=== PATIENT | female | born 1975 | race Caucasian/White ===

== ENCOUNTER 2017-06-14 21:53 | Emergency (ER) | payer SELFPAY ==
[~2017-06-14] VITALS: Ht 167.6 cm; Wt 68.0 kg
[2017-06-14 22:03] VITALS: BP 136/80
--- NOTE | 2017-06-14 22:15 | NUR ---
TO ER BED 5
--- NOTE | 2017-06-14 22:20 | NUR ---
41 Y/O F BIB [facility]USB[facility] W/C/O PAIN TO R SMALL TOE S/P TRIPPING WITH A CHAIR WHILE WALKING. TOE APPERS SWOLLEN AND SLIGHLTY DEVIATED TO THE RIGHT. NO S/S OF IMPAIRED CURCULATION, POSITIVE SENSATION, WARM TO TOUCH, PINK, CAP LESS THAN 3. ER MD MADE AWARE.
--- NOTE | 2017-06-14 22:20 | NUR ---
Patient being evaluated by physician at bedside.
[2017-06-14] MEDS ORDERED: LIDOCAINE 2% 1000 MG/50 ML VIAL INJ ONE (23:20)
[2017-06-14] MEDS ORDERED: oxyCODONE/APAP 5/325 MG 1 TAB TAB PO ONE (23:20)
--- NOTE | 2017-06-15 01:24 | NUR ---
XRAY IN BED SIDE TO CONFIRM REDUCTION OF AFFECTED TOE.
[2017-06-15 02:00] VITALS: BP 118/76
--- NOTE | 2017-06-15 02:00 | NUR ---
Patient discharged with v/s stable. Written and verbal after care instructions given and explained. Patient alert, oriented and verbalized understanding of instructions. Ambulatory with steady gait. All questions addressed prior to discharge. ID band removed. Patient advised to follow up with PMD IN 1-2 DAYS FOR F/U OR RETURN TO ER IF CONDITION WORSENS. Rx of given. Patient educated on indication of medication including possible reaction and side effects. Opportunity to ask questions provided and answered.
== END 2017-06-15 02:00 | disposition home or self-care (01) ==
LOC: MED 21:53
DX: S92.511A Displaced fracture of proximal phalanx of right lesser toe(s), initial encounter for closed fracture (principal); Z71.6 Tobacco abuse counseling; X58.XXXA Exposure to other specified factors, initial encounter; Y93.89 Activity, other specified; Y92.89 Other specified places as the place of occurrence of the external cause; Y99.8 Other external cause status
CPT/HCPCS: 28515; 73660; 99284; J2001; Q0092